=== PATIENT | female | born 1980 | race Caucasian/White ===

== ENCOUNTER 2016-07-27 10:03 | Emergency (ER) | payer MEDICAID, OTHER ==
[~2016-07-27] VITALS: Ht 152.4 cm; Wt 75.0 kg
[2016-07-27] MEDS ORDERED: TraMADol HCL 50 MG TABLET PO ONE (11:45)
[2016-07-27] MEDS ORDERED: KETOROLAC TROMETHAMINE 60 MG/2 ML VIAL IM ONE (11:45)
[2016-07-27] MEDS ORDERED: BACITRACIN 0.9 GM PACKET OINTMENT TP ONE (15:15)
[2016-07-27 16:02] VITALS: BP 131/70
== END 2016-07-27 16:10 | disposition home or self-care (01) ==
LOC: EMS 10:04
DX: S09.90XA Unspecified injury of head, initial encounter (principal); S83.411A Sprain of medial collateral ligament of right knee, initial encounter; S00.81XA Abrasion of other part of head, initial encounter; W10.8XXA Fall (on) (from) other stairs and steps, initial encounter; Y93.89 Activity, other specified; Y92.238 Other place in hospital as the place of occurrence of the external cause; Y99.8 Other external cause status
CPT/HCPCS: 29505; 73562; 81025; 96372; 99284; J1885

== ENCOUNTER → 2017-02-23 | Outpatient (CLI) | payer MEDICAID, OTHER | END | disposition home or self-care (01) | LOC: RADPV 13:43 | PROVIDERS: ATTEND Internal Medicine | DX: M25.461 Effusion, right knee (principal) ==